=== PATIENT | female | born 1945 | race Caucasian/White ===

== ENCOUNTER 2016-08-03 13:22 | Emergency (ER) | payer OTHER ==
[2016-08-03 13:32] VITALS: BP 146/76; BMI 25.7
[2016-08-03] MEDS ORDERED: NORFLEX INJ IM ONE (14:24)
[2016-08-03] MEDS ORDERED: TORADOL 60 MG VIAL IM ONE (14:24)
--- NOTE | 2016-08-03 14:29 | DR.GENAD ---
HPI - PCP Primary Care Physician: karolina - Complaint/Symptoms Chief Complaint Doctors Comments: L knee pain and left hip pain after falling at home. Chief Complaint:: left knee has been hurting for several days now she fell today and hurt her right wrist pt got injection in left knee by doctor karolina yesterday - Nurses notes reviewed Nurses Notes Review: Yes - Source History Provided: Patient - Mode of Arrival Mode of Arrival: Ambulatory - Timing Onset of Chief Complaint: 08/01/16 - Associated Signs and Symptoms Associated Signs and Symptoms: Right wrist skin tear. PMH - PMH Past Medical History: No Past Surgical History: Yes Surgical History: Cholecystectomy, Hysterectomy Past Surgical History Comment: throid removed - Family History History of Family Medical Conditions: Yes Family Medical History: Diabetes Mellitus, Cancer, Heart Failure, Hypertension - Social History Does patient currently use any type of tobacco product: No Have you used tobacco products in the last 12 months: No Type of Tobacco Use: None Does any household member use tobacco: No Alcohol Use: None Do you use any recreational Drugs:: No Lives With: Family Lives Where: Home - infectious screening In the last 2 months have you had wt loss of >10#?: NO Have you had fever, night sweats or hemotysis?: No Have you traveled outside the country in the last 6 months?: No Isolation: Standard ROS - Review of Systems Eyes: No Symptoms Reported ENTM: No Symptoms Reported Respiratoy: No Symptoms Reported Cardiovascular: No Symptoms Reported Gastrointestinal/Abdominal: No Symptoms Reported Genitourinary: No Symptoms Reported Neurological: No Symptoms Reported Musculoskeletal: Wrist, Hip, Knee Integumentary: Other (skin tear right wrist) All Other Systems: Reviewed and Negative PE - Vital Signs Vitals: Temperature 98.4 F Pulse Rate 88 Respiratory Rate 18 Blood Pressure 146/76 O2 Sat by Pulse Oximetry 100 - General Limitations: No Limitations General Appearance: Alert, Anxious - Head Head Exam: Normal Inspection - Neck Neck Exam: Normal Inspection, Full ROM, Trachea Midline - Chest Chest Inspection: Normal Inspection - Respiratory Respiratory Exam: Normal Lung Sounds Bilat - Cardiovascular Cardiovascular Exam: Regular Rate, Normal Rhythm, Normal Heart Sounds - Abdominal Exam Abdominal Exam: Normal Inspection, Normal Bowel Sounds - Extremities Extremities Exam: Other (in wheelchair, will not bear weight on L knee.) - Neurologic Neurological Exam: Alert, Oriented X3, CN II-XII Intact - Psychiatric Psychiatric Exam: Normal Affect - Skin Skin Exam: Warm, Dry, Intact, Normal Color (R wrist/ forearm has superficial skin tear ~ 3 X 8 cm , clean, and no signs of secondary infection.) Course - Reevaluation 1st: Unchanged - Diagnosis Discharge Problem: Fall, Contusion of knee, left, Osteoarthritis (arthritis due to wear and tear of joints), Contusion of hip, left, Skin tear of forearm without complication - Discharge Plan Disposition: 01 HOME, SELF-CARE Condition: Stable - Follow ups/Referrals Follow ups/Referrals: Ed Garrido [Primary Care Provider] - 3 days - Instructions Instructions: Joint Injection, Care After, Knee Pain, Skin Tear Care Additional Notes - Additional Notes Additional Notes: Refer patient to Dr Leonel Myles in [place] for Ortho f/u per patient and family request. Patient has [place] at home.
[2016-08-03] MEDS ORDERED: TORADOL 60 MG VIAL ONE (14:40)
[2016-08-03] MEDS ORDERED: NORFLEX INJ ONE (14:40)
--- NOTE | 2016-08-03 15:03 | RAD ---
HISTORY: Trauma. Study: Three views of the left knee. Comparison: None available. Findings: No evidence for acute cortical disruption or dislocation. Mild patellofemoral spurring and medial j oint space narrowing. No significant effusion. The soft tissues are otherwise unremarkable. IMPRESSION: No acute osseous abnormality. Reported By:
--- NOTE | 2016-08-03 15:08 | RAD ---
HISTORY: Injury, fall, left hip pain Study: Left hip two views, AP pelvis Comparison: None Findings: There is a linear fragment of bone adjacent to the lateral aspect of the left iliac bone near the an terior inferior iliac spine. This may represent an avulsion fracture. This could be acute subacute o r chronic. Clinical correlation as to the presence or absence of point tenderness should be helpful. The remainder the pelvic bones and SI joints are intact. The left hip joint is intact. No joint ero sions are noted. No fracture, lytic, or blastic lesion is identified. IMPRESSION: Normal left hip joint Linear fragment of bone adjacent to the lateral aspect of the iliac wing as described above possibly representing an avulsion fracture the duration of which is unclear. Clinical correlation as to the presence or absence of point tenderness in that area should be helpful in distinguishing between an old and a recent fracture. Reported By:
[2016-08-03] MEDS ORDERED: ZOFRAN INJ 4 MG VIAL IVP ONE (15:29)
[2016-08-03] MEDS ORDERED: MORPHINE SULFATE INJ 4 MG IVP ONE (15:29)
[2016-08-03] MEDS ORDERED: ZOFRAN INJ 4 MG VIAL ONE ×2 (15:43→15:48)
[2016-08-03] MEDS ORDERED: MORPHINE SULFATE INJ 4 MG ONE ×2 (15:43→15:48)
== END 2016-08-03 16:10 | disposition home or self-care (01) ==
LOC: ER 13:54
DX: S80.02XA Contusion of left knee, initial encounter (principal); M19.90 Unspecified osteoarthritis, unspecified site; S70.02XA Contusion of left hip, initial encounter; S51.811A Laceration without foreign body of right forearm, initial encounter; W19.XXXA Unspecified fall, initial encounter; Y92.009 Unspecified place in unspecified non-institutional (private) residence as the place of occurrence of the external cause
CPT/HCPCS: 73501; 73564; 96372; 99282; J1885; J2270; J2360; J2405

== ENCOUNTER → 2016-08-22 | Outpatient (CLI) | payer OTHER ==
[2016-08-03 13:32] VITALS: BP 146/76
--- NOTE | 2016-08-22 16:51 | MRI ---
HISTORY: Pain left knee. Study: MRI left knee without contrast. Comparison: Left knee series dated August 03, 2016. Technique: Multiplanar multisequence MRI of the left knee was obtained utilizing standard [facility] protocol. Findings: The anterior and posterior cruciate ligaments are intact Complex tear involving the entire medial meniscus, with some extrusion into the medial gutter. Assoc iated bone marrow edema of the medial femoral condyle. The visualized lateral meniscus is intact. Th e medial and lateral femoral condylar cartilage surfaces are intact. The patellofemoral cartilage de monstrates mild chondromalacia. The collateral ligaments are intact. The patellar and quadriceps tendons are intact. Remaining bone marrow signal is normal. Small knee effusion. Small Chambers cyst. IMPRESSION: Complex tear of the medial meniscus as above with associated bone marrow edema of the me dial femoral condyle. Reported By:
== END | disposition home or self-care (01) ==
LOC: RAD 15:17
PROVIDERS: ATTEND Internal Medicine
DX: M25.562 Pain in left knee (principal); S83.232A Complex tear of medial meniscus, current injury, left knee, initial encounter; X58.XXXA Exposure to other specified factors, initial encounter
CPT/HCPCS: 73721